=== PATIENT | male | born 1970 | race Caucasian/White ===

== ENCOUNTER 2019-11-08 13:26 | Emergency (ER) | payer MEDICAID, OTHER ==
[~2019-11-08] VITALS: Ht 172.7 cm; Wt 88.1 kg
[2019-11-08] MEDS ORDERED: KETOROLAC 30 MG/1 ML ONE (14:00)
[2019-11-08] MEDS ORDERED: SODIUM CHLORIDE FLUSH 10ML SYR IVF ONE (14:00)
[2019-11-08] MEDS ORDERED: KETOROLAC 30 MG/1 ML IM ONE (14:00)
[2019-11-08] MEDS ORDERED: METHOCARBAMOL 750 MG TABLET ONE (14:00)
[2019-11-08] MEDS ORDERED: METHOCARBAMOL 750 MG TABLET PO ONE (14:00)
--- NOTE | 2019-11-08 14:17 | NUR ---
LBP RADIATING DOWN RIGHT LEG FOR 2 DAYS. pt in bed in gown with cont spo2, bp q 30 min. lab and us in room. nad
[2019-11-08 14:24] LABS: BASOPHILS # (AUTO) 0.03 x10^3/uL (0-0.1); BASOPHILS % (AUTO) 0 % (0-1); EOSINOPHILS # (AUTO) 0.52 x10^3/uL (0-0.4); EOSINOPHILS % (AUTO) 6 % (1-7); LYMPHOCYTES # (AUTO) 2.38 x10^3/uL (1-3.4); LYMPHOCYTES % (AUTO) 26 % (22-44); MD NO; MEAN CORPUSCULAR HEMOGLOBIN 30.8 pg (27.5-34.5); MEAN CORPUSCULAR HGB CONC 33.7 g/dL (33.2-36.2); MEAN CORPUSCULAR VOLUME 91.6 fL (81-97); MEAN PLATELET VOLUME 8.4 fL (7.4-10.4); MONOCYTES # (AUTO) 0.67 x10^3/uL (0.2-0.8); MONOCYTES % (AUTO) 7 % (2-9); NEUTROPHILS # (AUTO) 5.76 x10^3/uL (1.8-6.8); NEUTROPHILS % (AUTO) 62 % (42-75); PLATELET COUNT 242 x10^3/uL (130-400); RED CELL DISTRIBUTION WIDTH 14.1 % (9.4-14.8)
[2019-11-08 14:36] LABS: ALBUMIN 3.7 g/dL (3.4-5.0); ANION GAP 4 mmol/L (5-15); CALCIUM 8.4 mg/dL (8.5-10.1); CHLORIDE 112 mmol/L (98-107); CREATININE 1.06 mg/dL (0.7-1.3)
[2019-11-08 14:40] LABS: TROPONIN I < 0.015 ng/mL (0.000-0.045)
[2019-11-08 15:33] VITALS: BP 124/74
== END 2019-11-08 15:35 | disposition home or self-care (01) ==
LOC: ED 15:00
DX: M51.36 Other intervertebral disc degeneration, lumbar region (principal); R07.89 Other chest pain; R06.02 Shortness of breath; F17.210 Nicotine dependence, cigarettes, uncomplicated
CPT/HCPCS: 36415; 71045; 72110; 80048; 82040; 83880; 84484; 85025; 93005; 93971; 96372; 99285; J1885